=== PATIENT | male | born 1955 | race Caucasian/White ===

== ENCOUNTER 2016-08-17 19:51 | Emergency (ER) | payer MEDICARE ==
[2016-08-17 19:56] VITALS: TEMP 98.2
[2016-08-17 20:03] VITALS: BMI 39.8
--- NOTE | 2016-08-17 20:16 | EDPRACDOC ---
ED Hypoglycemia - General Information Information Source: Patient, Rn Compliance Mode of Arrival:: Ambulance Home Medications: Home Medications Alprazolam [Xanax] 1 mg PO BID PRN 11/26/13 Amlodipine [Norvasc] 10 mg PO HS 11/26/13 Aspirin [Aspirin EC] 81 mg PO DAILY 11/26/13 Bupropion HCl [Wellbutrin] 100 mg PO QAM 11/26/13 Clopidogrel Bisulfate [Plavix] 75 mg PO QAM 11/26/13 Fenofibrate,Micronized [Lofibra] 200 mg PO HS 11/26/13 Hydrocodone Bit/Acetaminophen [Sandwich 7.5-325 Tablet] 1 tab PO BID 11/26/13 Insulin Regular, Human [Humulin R] 100 unit SQ .PUMP #0 11/26/13 Metoprolol Tartrate [Lopressor] 100 mg PO DAILY 11/26/13 Nortriptyline HCl [Pamelor] 25 mg PO HS 11/26/13 [place]-3 Fatty Acids/Fish Oil [Fish Oil 1,000 mg Softgel] 1 cap PO HS 11/26/13 Pravastatin [Pravachol] 40 mg PO HS 11/26/13 Pregabalin [Lyrica] 75 mg PO QAM 11/26/13 Zolpidem Tartrate [Ambien] 10 mg PO HS PRN 11/26/13 hydrALAZINE (Cardiovascular) [Apresoline] 10 mg PO TID 11/26/13 Citalopram (anti-depressant) [Celexa] 40 mg PO DAILY 09/14/15 Nitroglycerin [Nitrostat] 0.3 mg SL Q5MX3 PRN 09/14/15 Omeprazole Magnesium [Prilosec Otc] 20 mg PO DAILY 09/14/15 Spironolactone 25 mg PO BID 09/14/15 Diphenhydramine [Benadryl] 25 mg PO QHS PRN 08/17/16 Furosemide [Lasix] 40 mg PO BID 08/17/16 Isosorbide Mononitrate [Isosorbide Mononitrate ER] 30 mg PO DAILY 08/17/16 Pantoprazole Sodium [Protonix] 40 mg PO DAILY 08/17/16 Allergies/Adverse Reactions: Allergies Allergy/AdvReac Type Severity Reaction Status Date / Time No Known Drug Allergies Allergy Unknown Verified 06/01/16 22:04 - History of Present Illness [place]: Reports: Confused Found: Reports: Disoriented Weakness: Reports: Generalized Weakness Eating: Reports: Poorly Relevent History Of: Reports: Diabetes, Insulin Use. Denies: Oral Hypoglycemic use, Seizure Frequent: Reports: Hypoglycemic Modifying Factors: improves with: Food (PATIENT DRINK 2 GLASSES OF ORANGE JUICE AND A HAM SANDWICH PER EMS REQUEST) Associated Signs & Symptoms: Reports: Nausea (ANOREXIA) - Other History Other History: PATIENT WAS FOUND BY HIS [place] WITH ALTERED MENTAL STATUS DIAPHORESIS CONFUSION. EMS WAS SUMMONED PATIENT BLOOD SUGAR WAS 59. PATIENT REFUSED IV DEXTROSE, GLUCAGON OR ANY OTHER TREATMENTS BY EMS BUT HE DID EAT. HE INITIALLY REFUSED TRANSPORT REALLY HELP WHATSOEVER HOWEVER WHEN THE PATIENT BECAME DIAPHORETIC AND MORE CONFUSED I WAS CONTACTED BY EMS DIRECTED THEM SINCE HIS SUGAR WAS LOW AND HE WAS GETTING WORSE THAT HE WAS BEING BROUGHT TO THE EMERGENCY DEPARTMENT AGAINST HIS WILL IF NECESSARY. EMS REPORTS THAT HE HAS IMPROVED DURING HIS TRANSPORT TIME TO THE RIGHT OUT-OF- HOSPITAL. ED Past Medical History - History Reviewed Yes Nurses notes reviewed and agree except as marked - Patient Medical History Neurological History: Reports: Cerebrovascular Accident Cardiac History: Reports: Coronary Artery Disease (MULTI-VESSEL), Hypertension, Heart Attack (X2), Cardiac Catheterization, Hypercholesterolemia. Denies: Cardiomyopathy, Valvular Heart Disease Respiratory History: Reports: COPD, Chronic Bronchitis GI/ History: Reports: Renal Disease, Renal Failure Musculoskeletal History: Reports: Arthritis Psychological History: Reports: Anxiety. Denies: Depression, Substance Use Disorder Systemic History: Reports: Diabetes. Denies: Cancer Surgical History: Reports: Angioplasty, Cardiac Catheterization - Family Medical History Reports: Hypertension, Cancer, Stroke, Cardiac Disorders - Social Medical History Smoking Status: Never smoker Social History: Denies: Substance Use Disorder EDM Review of Systems - Review of Systems ROS Negative Except as Marked: Yes All systems reviewed and were negative except as marked - Physical Exam Constitutional: Alert, Other (FEELING BETTER,). negative: Confused Last recorded Vital Signs: Last Vital Signs Temp 98.2 F 08/17/16 19:54 Pulse 89 08/17/16 19:54 Resp 18 08/17/16 19:54 BP 157/72 08/17/16 19:54 Pulse Ox 96 08/17/16 19:54 Oxygen Pulse Oxygen Saturation 96 O2 Device Room Air Oxygen Flow Rate Fraction of Inspired Oxygen ( FIO2) - Re-evaluation Re-evaluation 3 Re-evaluation Time: 20:41 (AWAKE AND ALERT, MAINTAINING MENTAL STATUS AND BLOOD SUGAR. SAFE FOR D/C HOME.) - Results 08/17/16 20:12 - Departure Disposition: Home Condition: Stable Final Diagnosis: Hypoglycemia, Anorexia Instructions: Hypoglycemia in a Person with Diabetes (ED) Referrals: None,No Provider [NonStaff] - One Week Prescriptions: No Action Zolpidem Tartrate [Ambien] 10 mg PO HS PRN PRN Reason: insomnia Pravastatin [Pravachol] 40 mg PO HS [place]-3 Fatty Acids/Fish Oil [Fish Oil 1,000 mg Softgel] 1 cap PO HS Nortriptyline HCl [Pamelor] 25 mg PO HS Pregabalin [Lyrica] 75 mg PO QAM Metoprolol Tartrate [Lopressor] 100 mg PO DAILY Hydrocodone Bit/Acetaminophen [Sandwich 7.5-325 Tablet] 1 tab PO BID hydrALAZINE (Cardiovascular) [Apresoline] 10 mg PO TID Fenofibrate,Micronized [Lofibra] 200 mg PO HS Clopidogrel Bisulfate [Plavix] 75 mg PO QAM Bupropion HCl [Wellbutrin] 100 mg PO QAM Aspirin [Aspirin EC] 81 mg PO DAILY Amlodipine [Norvasc] 10 mg PO HS Alprazolam [Xanax] 1 mg PO BID PRN PRN Reason: Anxiety Insulin Regular, Human [Humulin R] 100 unit SQ .PUMP #0 Nitroglycerin [Nitrostat] 0.3 mg SL Q5MX3 PRN PRN Reason: Pain Citalopram (anti-depressant) [Celexa] 40 mg PO DAILY Omeprazole Magnesium [Prilosec Otc] 20 mg PO DAILY Spironolactone 25 mg PO BID Furosemide [Lasix] 40 mg PO BID Diphenhydramine [Benadryl] 25 mg PO QHS PRN PRN Reason: Sleep Or Insomnia Pantoprazole Sodium [Protonix] 40 mg PO DAILY Isosorbide Mononitrate [Isosorbide Mononitrate ER] 30 mg PO DAILY
[2016-08-17 20:23] LABS: LEUKOCYTES/URINE NEG (NEGATIVE); NITRITE/URINE NEG (NEGATIVE); RBC/URINE 0-2 (0-2); URINE OCCULT BLOOD NEG (NEG/TRACE)
[2016-08-17 20:30] LABS: BLOOD UREA NITROGEN 39 MG/DL (9-20); CALCIUM 9.7 MG/DL (8.4-10.2); CALCULATED OSMOLALITY 283 MOs/Kg (270-290); CHLORIDE 103 mEq/L (98-107); GLUCOSE 110 mg/dL (70-99); SODIUM LEVEL 142 mEq/L (137-146)
[2016-08-17 21:36] VITALS: BP 157/86; PULSE 86
== END 2016-08-17 21:43 | disposition home or self-care (01) ==
LOC: ED 19:51
DX: E11.649 Type 2 diabetes mellitus with hypoglycemia without coma (principal); R63.0 Anorexia; Z68.39 Body mass index [BMI] 39.0-39.9, adult
CPT/HCPCS: 36415; 80048; 81001; 82962; 99283